=== PATIENT | female | born 1975 | race Caucasian/White ===

== ENCOUNTER 2017-09-24 21:54 | Emergency (ER) | payer MEDICAID ==
[~2017-09-24] VITALS: Ht 160 cm; Wt 91.0 kg
[~2017-09-24 21:54] MED LIST: ALBU8.5H8 INH; LISI-170 PO; LORA0.5T PO; METH4TAB2 PO; MORP30TA81 PO; OXYC10TA47 PO; OXYC10TA6 PO
[2017-09-24] MEDS ORDERED: ALBU18HF INH (22:41)
[2017-09-24] MEDS ORDERED: FLUT1AER INH (22:41)
[2017-09-24] MEDS ORDERED: CARI250T PO (22:41)
[2017-09-24 22:42] LABS: AMPHETAMINE SCREEN, URINE Negative (Negative); BARBITURATE SCREEN, URINE Negative (Negative); BENZODIAZEPINE SCREEN, URINE Positive (Negative); CANNABINOID SCREEN, URINE Negative (Negative); COCAINE SCREEN, URINE Positive (Negative); METHADONE SCREEN, URINE Negative (Negative); OPIATE SCREEN, URINE Negative (Negative)
[2017-09-24 22:50] LABS: BASOPHILS # (AUTO) 0.02 x10^3/uL (0-0.1); BASOPHILS % (AUTO) 0 % (0-1); EOSINOPHILS # (AUTO) 0.02 x10^3/uL (0-0.4); EOSINOPHILS % (AUTO) 0 % (1-7); LYMPHOCYTES # (AUTO) 2.23 x10^3/uL (1-3.4); LYMPHOCYTES % (AUTO) 39 % (22-44); MD NO; MEAN CORPUSCULAR HGB CONC 33.8 g/dL (32.4-35.8); MEAN CORPUSCULAR VOLUME 94.5 fL (80-100); MONOCYTES # (AUTO) 0.39 x10^3/uL (0.2-0.8); MONOCYTES % (AUTO) 7 % (2-9); NEUTROPHILS % (AUTO) 54 % (42-75); PLATELET COUNT 376 x10^3/uL (130-400); RED BLOOD COUNT 4.68 x10^6/uL (3.82-5.3); RED CELL DISTRIBUTION WIDTH 15.5 % (9.6-15.2)
[2017-09-24 23:02] LABS: ALANINE AMINOTRANSFERASE 37 U/L (12-78); ANION GAP 14 mmol/L (5-15); CALCIUM 8.3 mg/dL (8.5-10.1); CHLORIDE 111 mmol/L (98-107); CREATININE 0.96 mg/dL (0.55-1.02); SALICYLATE LEVEL 4.3 mg/dL (2.8-20.0)
[2017-09-24 23:26] LABS: BILIRUBIN,TOTAL 0.9 mg/dL (0.2-1.0)
[2017-09-24 23:27] LABS: ACETAMINOPHEN < 2 mcg/mL (10-30); ALKALINE PHOSPHATASE 110 U/L (45-117); TOTAL PROTEIN 7.7 g/dL (6.4-8.2)
[2017-09-24] MEDS ORDERED: OXYcodone IR 5MG TABLET PO ONE (23:30)
[2017-09-24] MEDS ORDERED: OXYcodone IR 5MG TABLET ONE (23:36)
[2017-09-25] MEDS ORDERED: NICOTINE 14MG/24 HR PATCH.TD24 ONE (00:22)
[2017-09-25] MEDS ORDERED: NICOTINE 14MG/24 HR PATCH.TD24 TD ONE (00:30)
[2017-09-25 06:49] VITALS: BP 168/100
== END 2017-09-25 06:52 | disposition home or self-care (01) ==
LOC: ED 23:12
DX: F32.9 Major depressive disorder, single episode, unspecified (principal); R45.851 Suicidal ideations; F41.9 Anxiety disorder, unspecified; Z90.49 Acquired absence of other specified parts of digestive tract; Z79.899 Other long term (current) drug therapy
CPT/HCPCS: 36415; 80053; 80307; 80329; 85025; 99284; G0480

== ENCOUNTER 2017-12-22 18:53 | Emergency (ER) | payer MEDICAID ==
[~2017-12-22] VITALS: Ht 157.5 cm; Wt 92.5 kg
[~2017-12-22 18:53] MED LIST changes: +ALBU18HF INH; +CARI250T PO; +FLUT1AER INH
[2017-12-22] MEDS ORDERED: CITA40TA12 PO (19:40)
[2017-12-22] MEDS ORDERED: HYDROcodone/APAP 5/325 TABLET PO ONE (20:00)
[2017-12-22] MEDS ORDERED: HYDROcodone/APAP 5/325 TABLET ONE (20:05)
[2017-12-22 20:08] VITALS: BP 173/126
== END 2017-12-22 20:48 | disposition home or self-care (01) ==
LOC: ED 20:18
DX: F10.10 Alcohol abuse, uncomplicated (principal); F11.23 Opioid dependence with withdrawal; G89.29 Other chronic pain; J45.909 Unspecified asthma, uncomplicated; I10 Essential (primary) hypertension; E66.9 Obesity, unspecified; Z98.51 Tubal ligation status
CPT/HCPCS: 99282

== ENCOUNTER 2018-05-03 18:07 | Emergency (ER) | payer MEDICAID ==
[~2018-05-03] VITALS: Ht 157.5 cm; Wt 79.0 kg
[~2018-05-03 18:07] MED LIST changes: +CITA40TA12 PO
[2018-05-03 18:19] VITALS: BP 143/96
[2018-05-03] MEDS ORDERED: NAPROXEN 500 MG TABLET ONE (18:40)
[2018-05-03] MEDS ORDERED: NAPROXEN 500 MG TABLET PO ONE (19:00)
== END 2018-05-03 19:22 | disposition home or self-care (01) ==
LOC: ED 19:20
DX: G89.11 Acute pain due to trauma (principal); M79.661 Pain in right lower leg; M76.62 Achilles tendinitis, left leg; I10 Essential (primary) hypertension; J45.909 Unspecified asthma, uncomplicated; E66.9 Obesity, unspecified; Y04.8XXA Assault by other bodily force, initial encounter; Y93.89 Activity, other specified; Y92.89 Other specified places as the place of occurrence of the external cause; Y99.8 Other external cause status
CPT/HCPCS: 99283

== ENCOUNTER 2020-02-29 20:59 | Inpatient (IN) | payer MEDICAID ==
[~2020-02-29] VITALS: Ht 162.6 cm; Wt 88.1 kg
--- NOTE | 2020-02-29 21:24 | NUR ---
MT: FATHER OF PT ([place]) WOULD LIKE TO BE UPDATED REGARDING PATIENT'S CONDITION - [phone].
[2020-02-29] MEDS ORDERED: EPINEPHRINE SYRINGE 0.1 MG/ML, 10ML ONE (21:45)
[2020-02-29] MEDS ORDERED: NOREPINEPHRINE 8 MG in SODIUM CHLORIDE 0.9% 242 ML IV PRN (22:00)
[2020-02-29] MEDS ORDERED: EPINEPHRINE 10 MG in SODIUM CHLORIDE 0.9% 240 ML IV PRN (22:00)
[2020-02-29 22:03] LABS: BASOPHILS % (AUTO) 0 % (0-1); EOSINOPHILS % (AUTO) 3 % (1-7); LYMPHOCYTES % (AUTO) 39 % (22-44); MEAN CORPUSCULAR HEMOGLOBIN 30.5 pg (27.0-34.8); MEAN CORPUSCULAR HGB CONC 30.9 g/dL (32.4-35.8); MEAN PLATELET VOLUME 8.6 fL (7.4-10.4); MONOCYTES % (AUTO) 8 % (2-9); NEUTROPHILS % (AUTO) 50 % (42-75); PLATELET COUNT 222 x10^3/uL (130-400); RED BLOOD COUNT 4.87 x10^6/uL (3.82-5.3); RED CELL DISTRIBUTION WIDTH 15.1 % (9.6-15.2)
[2020-02-29 22:13] LABS: ALANINE AMINOTRANSFERASE 30 U/L (12-78); ALBUMIN 3.3 g/dL (3.4-5.0); ANION GAP 15 mmol/L (5-15); CALCIUM 8.7 mg/dL (8.5-10.1); CHLORIDE 102 mmol/L (98-107); CREATININE 1.26 mg/dL (0.55-1.02)
[2020-02-29 22:17] LABS: ALKALINE PHOSPHATASE 121 U/L (45-117); BILIRUBIN,TOTAL 0.2 mg/dL (0.2-1.0); TOTAL PROTEIN 7.2 g/dL (6.4-8.2); TROPONIN I < 0.015 ng/mL (0.000-0.045)
[2020-02-29 22:23] LABS: MD SCAN
[2020-02-29] MEDS ORDERED: MIDAZOLAM HCL 50 MG in SODIUM CHLORIDE 0.9% 40 ML IV PRN (22:30)
--- NOTE | 2020-02-29 22:40 | NUR ---
PT FAMILY STATED PT HAS BEEN ON METHADONE AND LATELY OXYCODONE FOR PAIN, SAID PT TOOK 1 XANAX WELL PRIOR TO EVENT
[2020-02-29 22:43] LABS: SALICYLATE LEVEL 5.1 mg/dL (2.8-20.0)
--- NOTE | 2020-02-29 22:44 | NUR ---
PT RESTING IN BED ON VENT WITHOUT SEDATION, PT MEDICATED PER EMAR. PROVIDER IN ROOM PLACING CENTRAL LINE
--- NOTE | 2020-02-29 23:19 | NUR ---
PER PROVIDER VERBAL ORDER, PROVIDER WOULD LIKE TO BACK OFF EPI AND ONLY USE LEVOPHED.
[2020-02-29 23:20] LABS: AMPHETAMINE SCREEN, URINE Negative (Negative); BARBITURATE SCREEN, URINE Negative (Negative); BENZODIAZEPINE SCREEN, URINE Negative (Negative); CANNABINOID SCREEN, URINE Negative (Negative); COCAINE SCREEN, URINE Negative (Negative); METHADONE SCREEN, URINE Positive (Negative); OPIATE SCREEN, URINE Positive (Negative)
[2020-02-29 23:31] LABS: MICROSCOPIC INDICATED
--- NOTE | 2020-02-29 23:40 | NUR ---
HYUN RN: PT TO CT WITH THIS RN, RT AND TECH. PT BACK TO ROOM, SEE VS, HOOKED UP ON ALL MONITORS AND VENT.
[2020-02-29] MEDS ORDERED: DEXAMETHASONE 4 MG/ML, 1ML ONE (23:57)
[2020-03-01] MEDS ORDERED: DEXAMETHASONE 4 MG/ML, 1ML IVPush ONE
--- NOTE | 2020-03-01 00:01 | NUR ---
VERBAL ORDER FROM DR TAPIA FOR 10MG DECADRON IV - GIVEN WITH 5 RIGHTS VERIFIED.
--- NOTE | 2020-03-01 00:20 | NUR ---
artic sun started, pt placed on ua cath temp to artic sun
--- NOTE | 2020-03-01 00:46 | NUR ---
PT FATHER AND WALKED BACK TO [facility] FOR PT CONTACT, ANDREA ROTH FAMILY IS IN ROOM
[2020-03-01] MEDS ORDERED: LEVETIRACETAM 1,000 MG in SODIUM CHLORIDE 0.9% 100 ML IV ONE (01:00)
--- NOTE | 2020-03-01 01:30 | NUR ---
REPORT TO HANSEL Mohan
--- NOTE | 2020-03-01 01:32 | NUR ---
ASSUMING CARE OF PT AT THIS TIME FROM HANSEL VÁZQUEZ. REPORT RECEIVED. ALL QUESTIONS ANSWERED. FAMILY AT BS AT THIS TIME WITH DR. BARBOZA.
--- NOTE | 2020-03-01 01:44 | NUR ---
DR. PEDRAZA AT TO DISCUSS PT DISPOSITION WITH FAMILY. FAMILY LEAVING FOR THE NIGHT AND WILL CALL FOR PT ROOM ASSIGNMENT IN CCU. PT EXIBITS NO PURPOSEFUL MOVEMENT OR PUPILLARY RESPONSE IN ABSENCE OF SEDATION. HYPOTHERMIC PROTOCOL IN EFFECT PER HOSPITAL POLICY. PT MEDICATED WITH IV LEVETIRACETAM AT THIS TIME. PT VSS AND UPDATED IN EMR.
[2020-03-01] MEDS ORDERED: MORPHINE SULFATE 4 MG/ML, 1ML IV PRN (02:00)
[2020-03-01] MEDS ORDERED: MIDAZOLAM HCL 50 MG in SODIUM CHLORIDE 0.9% 40 ML IV PRN (02:00)
[2020-03-01] MEDS ORDERED: EPINEPHRINE 10 MG in SODIUM CHLORIDE 0.9% 240 ML IV PRN (02:00)
[2020-03-01] MEDS ORDERED: PHARMACY MAY ADJ FOR RENAL FX MC PRN (02:00)
[2020-03-01] MEDS ORDERED: ONDANSETRON 2MG/ML, 2ML IVPB PRN (02:00)
[2020-03-01] MEDS ORDERED: SODIUM CHLORIDE 0.9%, 500ML IVBOLUS PRN ×2 (02:00)
--- NOTE | 2020-03-01 03:00 | NUR ---
REPORT OF PT TO HANSEL MURCIA. RT PAGED FOR TRANSPORT OF PT TO CCU AT THIS TIME.
[2020-03-01] MEDS: CEFTRIAXONE PMX 1GM/50ML 50 ML IV SCH (03:24)
--- NOTE | 2020-03-01 03:34 | NUR ---
PT CLOTHES WERE THROWN IN THE GARBAGE DUE TO BEING HEAVILY SOILED WITH BODILY FLUIDS/WASTE. FAMILY NOTIFIED OF NEED TO DISCARD CLOTHES. PT MOVED WITH RT TO CCU AND CARE WAS ASSUMED BY HANSEL MURCIA.
[2020-03-01 04:00] VITALS: BP 139/109
[2020-03-01 04:03] LABS: BASOPHILS % (AUTO) 0 % (0-1); EOSINOPHILS % (AUTO) 1 % (1-7); LYMPHOCYTES % (AUTO) 6 % (22-44); MEAN CORPUSCULAR HEMOGLOBIN 30.8 pg (27.0-34.8); MEAN CORPUSCULAR HGB CONC 32.8 g/dL (32.4-35.8); MEAN PLATELET VOLUME 7.8 fL (7.4-10.4); MONOCYTES % (AUTO) 6 % (2-9); NEUTROPHILS % (AUTO) 87 % (42-75); PLATELET COUNT 224 x10^3/uL (130-400); RED BLOOD COUNT 6.08 x10^6/uL (3.82-5.3); RED CELL DISTRIBUTION WIDTH 14.4 % (9.6-15.2)
[2020-03-01 04:16] LABS: MD NO
[2020-03-01 04:20] LABS: ALANINE AMINOTRANSFERASE 151 U/L (12-78); ALBUMIN 3.6 g/dL (3.4-5.0); ANION GAP 7 mmol/L (5-15); CALCIUM 7.7 mg/dL (8.5-10.1); CHLORIDE 113 mmol/L (98-107); CREATININE 1.13 mg/dL (0.55-1.02)
[2020-03-01 04:22] LABS: ALKALINE PHOSPHATASE 149 U/L (45-117); BILIRUBIN,TOTAL 0.5 mg/dL (0.2-1.0); TOTAL PROTEIN 7.6 g/dL (6.4-8.2)
[2020-03-01] MEDS ORDERED: REGULAR INSULIN 100 UNITS in SODIUM CHLORIDE 0.9% 99 ML IV PRN ×2 (05:00→05:30)
[2020-03-01] MEDS ORDERED: INSULIN INFUSION FOR ICU PROTOCOL XX PRN (05:30)
[2020-03-01] MEDS ORDERED: DEXTROSE 50%, 50ML SYRINGE IV PRN (05:30)
[2020-03-01] MEDS ORDERED: INSULIN REGULAR 100 UNITS/ML, 3ML VIAL IV ONE (05:30)
[2020-03-01 05:35] VITALS: BP 126/98
[2020-03-01] MEDS ORDERED: DEXTROSE 50%, 50ML SYRINGE IVPush PRN (07:30)
[2020-03-01] MEDS ORDERED: SENNA/DOCUSATE TABLET NG PRN (07:30)
[2020-03-01] MEDS ORDERED: DEXTROSE 4 GM TAB.CHEW PO PRN (07:30)
[2020-03-01] MEDS ORDERED: GLUCAGON 1 MG IM PRN (07:30)
[2020-03-01] MEDS ORDERED: PHARMACY MAY ADJ FOR RENAL FX MC SCH (07:30)
[2020-03-01] MEDS ORDERED: PROPOFOL 100 ML IV ONE (07:54)
[2020-03-01] MEDS ORDERED: CALCIUM CHLORIDE 13.6 MEQ in SODIUM CHLORIDE 0.9% 100 ML IVPB PRN (08:00)
[2020-03-01] MEDS ORDERED: ARTIFICIAL TEARS OINT 3.5 GM EACHEYE SCH (08:00)
[2020-03-01] MEDS ORDERED: FENTANYL PF 1,000 MCG in SODIUM CHLORIDE 0.9% 80 ML IV PRN (08:00)
[2020-03-01] MEDS ORDERED: SODIUM PHOSPHATE 20 MMOL in SODIUM CHLORIDE 0.9% 250 ML IVPB PRN (08:00)
[2020-03-01] MEDS ORDERED: MAGNESIUM SULFATE 1 GM in DEXTROSE 5% 100 ML IVPB PRN (08:00)
[2020-03-01] MEDS: PROPOFOL 100 ML IV PRN (08:08)
[2020-03-01] MEDS: KSCALE TO 4.0 IV SCH ×4 (08:37→20:00)
[2020-03-01] MEDS: BUSPIRONE 10 MG TABLET NG SCH ×2 (09:11→17:13)
[2020-03-01] MEDS: SODIUM CHLORIDE FLUSH 10ML SYR IVF SCH ×2 (09:11→19:36)
[2020-03-01] MEDS ORDERED: POTASSIUM CHLORIDE PMX 100 ML IV ONE ×2 (10:00→21:00)
[2020-03-01] MEDS: PANTOPRAZOLE 40 MG IV IVPush SCH (10:49)
[2020-03-01] MEDS: HEPARIN 5,000 UNITS/ML, 1ML SQ SCH ×2 (10:49→18:21)
[2020-03-01] MEDS: LEVETIRACETAM 500 MG in SODIUM CHLORIDE 0.9% 100 ML IV SCH (12:30)
[2020-03-01 13:58] LABS: D-DIMER 34.35 ug/mlFEU (0.00-0.52); INTERNATIONAL NORMALIZED RATIO 1.55 (0.93-1.1); PROTHROMBIN TIME 16.4 Seconds (9.6-11.5)
[2020-03-01] MEDS ORDERED: SODIUM BICARB 8.4%, 50ML SYRINGE IVPush ONE ×2 (14:00→19:30)
[2020-03-01] MEDS: AMPICILLIN/SULBACTAM 3 GM in SODIUM CHLORIDE 0.9% 100 ML IV SCH ×2 (14:07→19:36)
[2020-03-01] MEDS ORDERED: SODIUM CHLORIDE 0.9% 1,000ML IVBOLUS ONE (17:00)
[2020-03-01] MEDS: ARTIFICIAL TEARS OINT 3.5 GM EACHEYE SCH ×2 (18:21→23:38)
[2020-03-01] MEDS ORDERED: SODIUM BICARB 8.4%, 50ML SYRINGE ONE (19:28)
[2020-03-01] MEDS: NOREPINEPHRINE 8 MG in SODIUM CHLORIDE 0.9% 242 ML IV PRN (23:38)
[2020-03-02] MEDS: BUSPIRONE 10 MG TABLET NG SCH ×3 (00:35→16:58)
[2020-03-02] MEDS: KSCALE TO 4.0 IV SCH ×7 (00:35→22:07)
[2020-03-02] MEDS: AMPICILLIN/SULBACTAM 3 GM in SODIUM CHLORIDE 0.9% 100 ML IV SCH ×4 (01:07→19:42)
[2020-03-02] MEDS: LEVETIRACETAM 500 MG in SODIUM CHLORIDE 0.9% 100 ML IV SCH ×2 (01:41→13:02)
[2020-03-02] MEDS: HEPARIN 5,000 UNITS/ML, 1ML SQ SCH ×3 (02:26→18:00)
[2020-03-02] MEDS: CEFTRIAXONE PMX 1GM/50ML 50 ML IV SCH (03:18)
[2020-03-02 03:55] VITALS: BP 122/92
[2020-03-02 04:42] LABS: BASOPHILS % (AUTO) 0 % (0-1); EOSINOPHILS % (AUTO) 0 % (1-7); LYMPHOCYTES % (AUTO) 6 % (22-44); MEAN CORPUSCULAR HEMOGLOBIN 30.7 pg (27.0-34.8); MEAN PLATELET VOLUME 8.6 fL (7.4-10.4); MONOCYTES % (AUTO) 7 % (2-9); NEUTROPHILS % (AUTO) 87 % (42-75); PLATELET COUNT 253 x10^3/uL (130-400); RED BLOOD COUNT 6.67 x10^6/uL (3.82-5.3); RED CELL DISTRIBUTION WIDTH 15.3 % (9.6-15.2)
[2020-03-02 04:53] LABS: MD NO
[2020-03-02 05:34] LABS: ANION GAP 11 mmol/L (5-15); CALCIUM 7.5 mg/dL (8.5-10.1); CHLORIDE 122 mmol/L (98-107)
[2020-03-02 05:35] LABS: CREATININE 1.69 mg/dL (0.55-1.02)
[2020-03-02 07:12] LABS: ANION GAP 9 mmol/L (5-15); CALCIUM 7.9 mg/dL (8.5-10.1); CHLORIDE 124 mmol/L (98-107); CREATININE 1.75 mg/dL (0.55-1.02)
[2020-03-02] MEDS: ARTIFICIAL TEARS OINT 3.5 GM EACHEYE SCH ×2 (08:33→16:58)
[2020-03-02] MEDS: PANTOPRAZOLE 40 MG IV IVPush SCH (08:41)
[2020-03-02] MEDS: SODIUM CHLORIDE FLUSH 10ML SYR IVF SCH ×2 (08:41→19:42)
[2020-03-02] MEDS ORDERED: LACTATED RINGERS 1,000 ML IVBOLUS ONE ×2 (10:30→17:30)
[2020-03-02] MEDS ORDERED: POTASSIUM CHLORIDE PMX 100 ML IV ONE (11:30)
[2020-03-02] MEDS: NOREPINEPHRINE 8 MG in SODIUM CHLORIDE 0.9% 242 ML IV PRN (17:36)
[2020-03-02] MEDS: PROPOFOL 100 ML IV PRN (17:44)
[2020-03-03] MEDS: ARTIFICIAL TEARS OINT 3.5 GM EACHEYE SCH ×2 (00:46→08:51)
[2020-03-03] MEDS: BUSPIRONE 10 MG TABLET NG SCH (00:46)
[2020-03-03] MEDS: LEVETIRACETAM 500 MG in SODIUM CHLORIDE 0.9% 100 ML IV SCH (01:18)
[2020-03-03] MEDS: NOREPINEPHRINE 8 MG in SODIUM CHLORIDE 0.9% 242 ML IV PRN ×2 (01:41→11:21)
[2020-03-03] MEDS: AMPICILLIN/SULBACTAM 3 GM in SODIUM CHLORIDE 0.9% 100 ML IV SCH ×2 (01:42→08:51)
[2020-03-03] MEDS: HEPARIN 5,000 UNITS/ML, 1ML SQ SCH ×2 (02:33→10:58)
[2020-03-03] MEDS: CEFTRIAXONE PMX 1GM/50ML 50 ML IV SCH (03:36)
[2020-03-03 04:33] VITALS: BP 92/50
[2020-03-03 04:43] LABS: ANION GAP 7 mmol/L (5-15); CALCIUM 7.2 mg/dL (8.5-10.1); CHLORIDE 129 mmol/L (98-107)
[2020-03-03 04:44] LABS: CREATININE 1.87 mg/dL (0.55-1.02)
[2020-03-03 05:15] LABS: BASOPHILS % (AUTO) 0 % (0-1); EOSINOPHILS % (AUTO) 0 % (1-7); LYMPHOCYTES % (AUTO) 13 % (22-44); MEAN CORPUSCULAR HEMOGLOBIN 30.4 pg (27.0-34.8); MEAN PLATELET VOLUME 8.8 fL (7.4-10.4); MONOCYTES % (AUTO) 10 % (2-9); NEUTROPHILS % (AUTO) 77 % (42-75); PLATELET COUNT 231 x10^3/uL (130-400); RED BLOOD COUNT 5.76 x10^6/uL (3.82-5.3); RED CELL DISTRIBUTION WIDTH 15.5 % (9.6-15.2)
[2020-03-03 05:22] LABS: MD NO
[2020-03-03] MEDS: SODIUM CHLORIDE 0.45% 1,000 ML IV SCH ×2 (06:37→11:26)
[2020-03-03] MEDS: SODIUM CHLORIDE FLUSH 10ML SYR IVF SCH (08:51)
[2020-03-03] MEDS: PANTOPRAZOLE 40 MG IV IVPush SCH (08:51)
== END 2020-03-03 11:39 | disposition short-term general hospital (02) | DRG 91 ==
LOC: ED 22:22 → EDIP 03-01 02:53 → CCU 03-01 03:13
PROVIDERS: ADMIT Internal Medicine; ATTEND Internal Medicine
PROC: 5A1945Z Respiratory Ventilation, 24-96 Consecutive Hours (ICD-10-PCS; 2020-02-29)
PROC: 0BH17EZ Insertion of Endotracheal Airway into Trachea, Via Natural or Artificial Opening (ICD-10-PCS; 2020-02-29)
PROC: 0T9B70Z Drainage of Bladder with Drainage Device, Via Natural or Artificial Opening (ICD-10-PCS; 2020-02-29)
PROC: 02HV33Z Insertion of Infusion Device into Superior Vena Cava, Percutaneous Approach (ICD-10-PCS; principal; 2020-03-01)
PROC: 5A12012 Performance of Cardiac Output, Single, Manual (ICD-10-PCS; 2020-03-01)
PROC: B543ZZA Ultrasonography of Right Jugular Veins, Guidance (ICD-10-PCS; 2020-03-01)
PROC: 03H633Z Insertion of Infusion Device into Left Axillary Artery, Percutaneous Approach (ICD-10-PCS; 2020-03-03)
DX: G93.1 Anoxic brain damage, not elsewhere classified (principal); G93.41 Metabolic encephalopathy; J96.01 Acute respiratory failure with hypoxia; I46.9 Cardiac arrest, cause unspecified; N17.0 Acute kidney failure with tubular necrosis; J18.9 Pneumonia, unspecified organism; E87.0 Hyperosmolality and hypernatremia; E87.2 Acidosis; N39.0 Urinary tract infection, site not specified; R57.9 Shock, unspecified; S36.119A Unspecified injury of liver, initial encounter; G40.909 Epilepsy, unspecified, not intractable, without status epilepticus; I10 Essential (primary) hypertension; J44.9 Chronic obstructive pulmonary disease, unspecified; R00.0 Tachycardia, unspecified; R40.2430 Glasgow coma scale score 3-8, unspecified time; R73.9 Hyperglycemia, unspecified; R74.8 Abnormal levels of other serum enzymes; R94.31 Abnormal electrocardiogram [ECG] [EKG]; Z82.3 Family history of stroke; Z82.49 Family history of ischemic heart disease and other diseases of the circulatory system; Z86.73 Personal history of transient ischemic attack (TIA), and cerebral infarction without residual deficits
CPT/HCPCS: 36415; 36600; 70450; 71045; 80048; 80053; 80307; 81001; 82330; 82803; 82962; 83605; 83735; 84100; 84132; 84478; 84484; 84703; 85025; 85379; 85610; 85730; 86850; 86900; 87081; 87086; 93005; 94002; 94003; 96374; 96375; 99291; G0378; J0171; J0295; J0696; J1100; J1644; J1815; J1953; J2704; J3480; C9113; J7030; J7040; J7050; J7120

== ENCOUNTER 2020-03-03 11:39 | Inpatient (IN) | payer OTHER ==
[~2020-03-03] VITALS: Ht 167.6 cm; Wt 96.0 kg
[2020-03-03] MEDS ORDERED: DEXTROSE 50%, 50ML SYRINGE IVPush PRN (15:30)
[2020-03-03] MEDS ORDERED: POTASSIUM CHLORIDE 60 MEQ in SODIUM CHLORIDE 0.9% 100 ML IV PRN (15:30)
[2020-03-03] MEDS ORDERED: FLUCONAZOLE 200 MG/100 ML 100 ML IV ONE (15:30)
[2020-03-03] MEDS ORDERED: POTASSIUM PHOSPHATE 30 MMOL in SODIUM CHLORIDE 0.9% 250 ML IV PRN (15:30)
[2020-03-03] MEDS ORDERED: PLEASE ENTER HEIGHT AND WEIGHT MC SCH (15:30)
[2020-03-03] MEDS ORDERED: POTASSIUM PHOSPHATE 21 MMOL in SODIUM CHLORIDE 0.9% 250 ML IV PRN (15:30)
[2020-03-03] MEDS ORDERED: VASOPRESSIN 20 UNIT in SODIUM CHLORIDE 0.9% 99 ML IV PRN (15:30)
[2020-03-03] MEDS ORDERED: MAGNESIUM SULFATE PMX 4GM/100M 100 ML IVPB PRN (15:30)
[2020-03-03] MEDS ORDERED: PIPERACILLIN/TAZO 3.375 GM in SODIUM CHLORIDE 0.9% 50 ML IVPB SCH (15:30)
[2020-03-03] MEDS: ARTIFICIAL TEARS 15 DROP/ML BOTTLE EACHEYE SCH ×5 (15:30→23:30)
[2020-03-03] MEDS ORDERED: POTASSIUM CHLORIDE 40 MEQ in SODIUM CHLORIDE 0.9% 100 ML IV PRN (15:30)
[2020-03-03] MEDS ORDERED: NOREPINEPHRINE 8 MG in SODIUM CHLORIDE 0.9% 242 ML IV PRN (15:30)
[2020-03-03] MEDS ORDERED: CALCIUM CHLORIDE 13.6 MEQ in SODIUM CHLORIDE 0.9% 50 ML IV PRN (15:30)
[2020-03-03] MEDS ORDERED: LEVOTHYROXINE 100 MCG INJ IV ONE (16:00)
[2020-03-03 16:08] LABS: MEAN CORPUSCULAR HEMOGLOBIN 30.4 pg (27.0-34.8); MEAN CORPUSCULAR HGB CONC 32.3 g/dL (32.4-35.8); MEAN PLATELET VOLUME 8.3 fL (7.4-10.4); PLATELET COUNT 211 x10^3/uL (130-400); RED BLOOD COUNT 5.46 x10^6/uL (3.82-5.3); RED CELL DISTRIBUTION WIDTH 15.5 % (9.6-15.2)
[2020-03-03] MEDS: DEXTROSE 5% IV SCH (16:12)
[2020-03-03] MEDS: METHYLPREDNISOLONE SOD SUCC IV SCH (16:12)
[2020-03-03 16:16] LABS: INTERNATIONAL NORMALIZED RATIO 1.28 (0.93-1.1); PROTHROMBIN TIME 13.5 Seconds (9.6-11.5)
[2020-03-03 16:20] LABS: ALANINE AMINOTRANSFERASE 114 U/L (12-78); ALBUMIN 1.9 g/dL (3.4-5.0); ANION GAP 4 mmol/L (5-15); BILIRUBIN, DIRECT 0.1 mg/dL (0.1-0.2); CALCIUM 7.3 mg/dL (8.5-10.1); CHLORIDE 136 mmol/L (98-107); CREATININE 1.59 mg/dL (0.55-1.02)
[2020-03-03] MEDS: DEXTROSE 5% 1,000 ML IV SCH (16:22)
[2020-03-03 16:23] LABS: ALKALINE PHOSPHATASE 178 U/L (45-117); BILIRUBIN,TOTAL 0.3 mg/dL (0.2-1.0); TOTAL PROTEIN 5.4 g/dL (6.4-8.2)
[2020-03-03] MEDS: PANTOPRAZOLE 40 MG IV IV SCH (16:28)
[2020-03-03 16:38] LABS: CREATINE KINASE, TOTAL 1230 U/L (26-192)
[2020-03-03] MEDS: LEVOTHYROXINE 200 MCG in SODIUM CHLORIDE 0.9% 500 ML IV SCH (16:38)
[2020-03-03 16:39] LABS: MICROSCOPIC INDICATED
[2020-03-03] MEDS ORDERED: ALBUTEROL SULFATE 2.5 MG/3 ML ONE (16:50)
[2020-03-03] MEDS ORDERED: ALBUTEROL SULFATE 2.5MG/0.5ML ONE (16:51)
[2020-03-03 17:03] LABS: BILIRUBIN,INDIRECT 0.2 mg/dL (0.0-2.0)
[2020-03-03 17:25] LABS: MD YES
[2020-03-03 17:27] LABS: BANDS%(MANUAL) 10 % (0-7); EOS#(MANUAL) 0.09 x10^3/uL (0.0-0.4); EOS% (MANUAL) 1 % (1-7); LYMPH#(MANUAL) 1.71 x10^3/uL (1-3.4); LYMPHS% (MANUAL) 19 % (22-44); MONOS#(MANUAL) 0.54 x10^3/uL (0.3-2.7); MONOS% (MANUAL) 6 % (2-9); SEG#(MANUAL) 5.76 x10^3/uL (1.8-6.8); SEGS% (MANUAL) 64 % (42-75)
[2020-03-03 17:28] LABS: <PLATELET ESTIMATE> ADEQUATE; <PLT MORPHOLOGY> NORMAL PLT MORPH; <RBC MORPHOLOGY> NORMAL
[2020-03-03] MEDS ORDERED: ALBUTEROL SULFATE 2.5 MG/3 ML INLINE SCH (19:00)
[2020-03-03] MEDS: ALBUTEROL SULFATE 2.5MG/0.5ML NEB SCH ×2 (19:00→22:14)
[2020-03-03] MEDS: PHENYLEPHRINE 50 MG in SODIUM CHLORIDE 0.9% 245 ML IV PRN (19:54)
[2020-03-03] MEDS ORDERED: OMNIPAQUE 350 MG/ML, 100ML BOTTLE ONE (21:38)
[2020-03-03 22:08] LABS: MEAN CORPUSCULAR HEMOGLOBIN 30.2 pg (27.0-34.8); MEAN CORPUSCULAR HGB CONC 32.2 g/dL (32.4-35.8); MEAN PLATELET VOLUME 8.6 fL (7.4-10.4); PLATELET COUNT 140 x10^3/uL (130-400); RED BLOOD COUNT 4.58 x10^6/uL (3.82-5.3); RED CELL DISTRIBUTION WIDTH 15.5 % (9.6-15.2)
[2020-03-03 22:12] LABS: INTERNATIONAL NORMALIZED RATIO 1.32 (0.93-1.1)
[2020-03-03 22:14] LABS: ANION GAP 2 mmol/L (5-15); BILIRUBIN, DIRECT 0.1 mg/dL (0.1-0.2); CALCIUM 6.8 mg/dL (8.5-10.1); CHLORIDE 132 mmol/L (98-107)
[2020-03-03 22:16] LABS: ALANINE AMINOTRANSFERASE 89 U/L (12-78); ALKALINE PHOSPHATASE 139 U/L (45-117); BILIRUBIN,TOTAL 0.2 mg/dL (0.2-1.0); CREATINE KINASE, TOTAL 795 U/L (26-192); CREATININE 1.55 mg/dL (0.55-1.02); TOTAL PROTEIN 4.3 g/dL (6.4-8.2)
[2020-03-03 22:24] LABS: MD YES
[2020-03-03 22:29] LABS: BILIRUBIN,INDIRECT 0.1 mg/dL (0.0-2.0)
[2020-03-03 22:30] LABS: BAND#(MANUAL) 0.35 x10^3/uL; BANDS%(MANUAL) 10 % (0-7); LYMPH#(MANUAL) 0.18 x10^3/uL (1-3.4); LYMPHS% (MANUAL) 5 % (22-44); MONOS#(MANUAL) 0.07 x10^3/uL (0.3-2.7); MONOS% (MANUAL) 2 % (2-9); SEG#(MANUAL) 2.91 x10^3/uL (1.8-6.8); SEGS% (MANUAL) 83 % (42-75)
[2020-03-03 22:31] LABS: OVALOCYTES 1+
[2020-03-03 22:32] LABS: <PLATELET ESTIMATE> ADEQUATE; <PLT MORPHOLOGY> NORMAL PLT MORPH
[2020-03-03] MEDS: REGULAR INSULIN 100 UNITS in SODIUM CHLORIDE 0.9% 99 ML IV SCH (22:51)
[2020-03-04] MEDS: SODIUM BICARBONATE 8.4% 150 MEQ in DEXTROSE 5% 1,000 ML IV SCH ×4 (00:33→20:23)
[2020-03-04] MEDS: ARTIFICIAL TEARS 15 DROP/ML BOTTLE EACHEYE SCH ×12 (01:30→23:57)
[2020-03-04] MEDS: PIPERACILLIN/TAZO/PMX 3.375GM 50 ML IV SCH ×3 (02:12→18:04)
[2020-03-04] MEDS: DEXTROSE 5% 1,000 ML IV SCH ×4 (02:12→22:21)
[2020-03-04] MEDS: ALBUTEROL SULFATE 2.5MG/0.5ML NEB SCH ×6 (02:24→22:14)
[2020-03-04 04:00] VITALS: BP 97/60
[2020-03-04 04:16] LABS: MEAN CORPUSCULAR HEMOGLOBIN 30.1 pg (27.0-34.8); MEAN CORPUSCULAR HGB CONC 32.3 g/dL (32.4-35.8); MEAN PLATELET VOLUME 8.4 fL (7.4-10.4); PLATELET COUNT 169 x10^3/uL (130-400); RED BLOOD COUNT 4.62 x10^6/uL (3.82-5.3); RED CELL DISTRIBUTION WIDTH 15.9 % (9.6-15.2)
[2020-03-04 04:24] LABS: ALANINE AMINOTRANSFERASE 85 U/L (12-78); ANION GAP 4 mmol/L (5-15); CALCIUM 6.8 mg/dL (8.5-10.1); CHLORIDE 132 mmol/L (98-107)
[2020-03-04 04:27] LABS: ALKALINE PHOSPHATASE 137 U/L (45-117); BILIRUBIN,TOTAL 0.2 mg/dL (0.2-1.0); CREATINE KINASE, TOTAL 601 U/L (26-192); CREATININE 1.41 mg/dL (0.55-1.02); TOTAL PROTEIN 4.7 g/dL (6.4-8.2)
[2020-03-04 04:33] LABS: INTERNATIONAL NORMALIZED RATIO 1.24 (0.93-1.1); PROTHROMBIN TIME 13.1 Seconds (9.6-11.5)
[2020-03-04 04:35] LABS: BILIRUBIN, DIRECT < 0.1 mg/dL (0.1-0.2); BILIRUBIN,INDIRECT 0.1 mg/dL (0.0-2.0)
[2020-03-04 04:50] LABS: MD YES
[2020-03-04 04:56] LABS: BANDS%(MANUAL) 15 % (0-7); LYMPH#(MANUAL) 0.37 x10^3/uL (1-3.4); LYMPHS% (MANUAL) 7 % (22-44); MONOS#(MANUAL) 0.11 x10^3/uL (0.3-2.7); MONOS% (MANUAL) 2 % (2-9); SEG#(MANUAL) 4.03 x10^3/uL (1.8-6.8); SEGS% (MANUAL) 76 % (42-75)
[2020-03-04 04:57] LABS: OVALOCYTES 1+
[2020-03-04 04:58] LABS: <PLATELET ESTIMATE> ADEQUATE; <PLT MORPHOLOGY> NORMAL PLT MORPH; ANISOCYTOSIS 1+
[2020-03-04] MEDS: PHENYLEPHRINE 50 MG in SODIUM CHLORIDE 0.9% 245 ML IV PRN (08:08)
[2020-03-04] MEDS: REGULAR INSULIN 100 UNITS in SODIUM CHLORIDE 0.9% 99 ML IV SCH ×3 (08:08→20:24)
[2020-03-04] MEDS ORDERED: LIDOCAINE 1%, 10ML ONE (08:27)
[2020-03-04 09:02] LABS: MEAN CORPUSCULAR HEMOGLOBIN 30.2 pg (27.0-34.8); MEAN CORPUSCULAR HGB CONC 32.3 g/dL (32.4-35.8); MEAN PLATELET VOLUME 8.3 fL (7.4-10.4); PLATELET COUNT 174 x10^3/uL (130-400); RED BLOOD COUNT 4.56 x10^6/uL (3.82-5.3); RED CELL DISTRIBUTION WIDTH 15.3 % (9.6-15.2)
[2020-03-04 09:07] LABS: INTERNATIONAL NORMALIZED RATIO 1.2 (0.93-1.1); PROTHROMBIN TIME 12.7 Seconds (9.6-11.5)
[2020-03-04 09:09] LABS: ALANINE AMINOTRANSFERASE 84 U/L (12-78); ANION GAP 4 mmol/L (5-15); CALCIUM 7.1 mg/dL (8.5-10.1); CHLORIDE 136 mmol/L (98-107)
[2020-03-04 09:12] LABS: ALKALINE PHOSPHATASE 135 U/L (45-117); BILIRUBIN,TOTAL 0.2 mg/dL (0.2-1.0); CREATINE KINASE, TOTAL 486 U/L (26-192); CREATININE 1.21 mg/dL (0.55-1.02); TOTAL PROTEIN 4.9 g/dL (6.4-8.2); TROPONIN I 0.557 ng/mL (0.000-0.045)
[2020-03-04 09:13] LABS: BILIRUBIN, DIRECT < 0.1 mg/dL (0.1-0.2); BILIRUBIN,INDIRECT 0.1 mg/dL (0.0-2.0)
[2020-03-04 09:34] LABS: MD YES
[2020-03-04 09:36] LABS: BAND#(MANUAL) 0.59 x10^3/uL; BANDS%(MANUAL) 8 % (0-7); LYMPH#(MANUAL) 0.96 x10^3/uL (1-3.4); LYMPHS% (MANUAL) 13 % (22-44); MONOS#(MANUAL) 0.15 x10^3/uL (0.3-2.7); MONOS% (MANUAL) 2 % (2-9); REACTIVE LYMPHS # (MANUAL) 0.07 x10^3/uL (0-0); REACTIVE LYMPHS % (MANUAL) 1 % (0-0); SEG#(MANUAL) 5.62 x10^3/uL (1.8-6.8); SEGS% (MANUAL) 76 % (42-75)
[2020-03-04 09:38] LABS: ANISOCYTOSIS 1+
[2020-03-04 09:39] LABS: <PLATELET ESTIMATE> ADEQUATE; <PLT MORPHOLOGY> NORMAL PLT MORPH; OVALOCYTES 1+
[2020-03-04] MEDS: POTASSIUM PHOSPHATE 15 MMOL in SODIUM CHLORIDE 0.9% 250 ML IV PRN ×2 (10:13→17:35)
[2020-03-04] MEDS: POTASSIUM CHLORIDE PMX 20MEQ/100 ML IVPB PRN ×2 (10:13→22:06)
[2020-03-04 11:03] LABS: MICROSCOPIC INDICATED
[2020-03-04 11:40] LABS: INTERNATIONAL NORMALIZED RATIO 1.21 (0.93-1.1); PROTHROMBIN TIME 12.8 Seconds (9.6-11.5)
[2020-03-04] MEDS: LEVOTHYROXINE 200 MCG in SODIUM CHLORIDE 0.9% 500 ML IV SCH (12:24)
[2020-03-04 13:22] LABS: INTERNATIONAL NORMALIZED RATIO 1.27 (0.93-1.1); PROTHROMBIN TIME 13.4 Seconds (9.6-11.5)
[2020-03-04] MEDS ORDERED: VERAPAMIL 2.5 MG/ML, 2ML ONE (15:13)
[2020-03-04 15:17] LABS: BASOPHILS % (AUTO) 0 % (0-1); EOSINOPHILS % (AUTO) 0 % (1-7); LYMPHOCYTES % (AUTO) 8 % (22-44); MEAN CORPUSCULAR HEMOGLOBIN 30.5 pg (27.0-34.8); MEAN CORPUSCULAR HGB CONC 33.1 g/dL (32.4-35.8); MEAN PLATELET VOLUME 8.4 fL (7.4-10.4); MONOCYTES % (AUTO) 4 % (2-9); NEUTROPHILS % (AUTO) 88 % (42-75); PLATELET COUNT 122 x10^3/uL (130-400); RED BLOOD COUNT 3.98 x10^6/uL (3.82-5.3); RED CELL DISTRIBUTION WIDTH 15.3 % (9.6-15.2)
[2020-03-04 15:22] LABS: MD NO
[2020-03-04 15:26] LABS: ALANINE AMINOTRANSFERASE 72 U/L (12-78); ANION GAP 3 mmol/L (5-15); BILIRUBIN, DIRECT 0.1 mg/dL (0.1-0.2); CALCIUM 6.7 mg/dL (8.5-10.1); CHLORIDE 128 mmol/L (98-107); CREATININE 0.99 mg/dL (0.55-1.02)
[2020-03-04 15:28] LABS: ALKALINE PHOSPHATASE 120 U/L (45-117); BILIRUBIN,INDIRECT 0.2 mg/dL (0.0-2.0); BILIRUBIN,TOTAL 0.3 mg/dL (0.2-1.0); CREATINE KINASE, TOTAL 396 U/L (26-192); INTERNATIONAL NORMALIZED RATIO 1.2 (0.93-1.1); PROTHROMBIN TIME 12.7 Seconds (9.6-11.5); TOTAL PROTEIN 4.5 g/dL (6.4-8.2); TROPONIN I 0.542 ng/mL (0.000-0.045)
[2020-03-04] MEDS: METHYLPREDNISOLONE SOD SUCC IV SCH (17:42)
[2020-03-04] MEDS: DEXTROSE 5% IV SCH (17:42)
[2020-03-04] MEDS: PANTOPRAZOLE 40 MG IV IV SCH (17:46)
[2020-03-04] MEDS: MAGNESIUM SULFATE PMX 2GM/50ML 50 ML IVPB PRN ×2 (17:47→21:47)
[2020-03-04] MEDS ORDERED: FUROSEMIDE 20 MG/2 ML IV ONE ×2 (20:00→21:30)
[2020-03-04 21:33] LABS: BASOPHILS % (AUTO) 0 % (0-1); EOSINOPHILS % (AUTO) 0 % (1-7); LYMPHOCYTES % (AUTO) 8 % (22-44); MEAN CORPUSCULAR HEMOGLOBIN 30.5 pg (27.0-34.8); MEAN CORPUSCULAR HGB CONC 33.1 g/dL (32.4-35.8); MEAN PLATELET VOLUME 8.3 fL (7.4-10.4); MONOCYTES % (AUTO) 5 % (2-9); NEUTROPHILS % (AUTO) 87 % (42-75); PLATELET COUNT 124 x10^3/uL (130-400); RED BLOOD COUNT 3.95 x10^6/uL (3.82-5.3); RED CELL DISTRIBUTION WIDTH 14.9 % (9.6-15.2)
[2020-03-04 21:35] LABS: INTERNATIONAL NORMALIZED RATIO 1.17 (0.93-1.1); MD NO; PROTHROMBIN TIME 12.4 Seconds (9.6-11.5)
[2020-03-04 21:37] LABS: ALANINE AMINOTRANSFERASE 74 U/L (12-78); ANION GAP 4 mmol/L (5-15); BILIRUBIN, DIRECT 0.2 mg/dL (0.1-0.2); CALCIUM 6.2 mg/dL (8.5-10.1); CHLORIDE 122 mmol/L (98-107); CREATININE 0.89 mg/dL (0.55-1.02)
[2020-03-04 21:40] LABS: ALKALINE PHOSPHATASE 119 U/L (45-117); BILIRUBIN,INDIRECT 0.2 mg/dL (0.0-2.0); BILIRUBIN,TOTAL 0.4 mg/dL (0.2-1.0); CREATINE KINASE, TOTAL 432 U/L (26-192); TOTAL PROTEIN 4.5 g/dL (6.4-8.2); TROPONIN I 0.417 ng/mL (0.000-0.045)
[2020-03-04] MEDS ORDERED: VECURONIUM 10 MG IVPush ONE (23:30)
[2020-03-04] MEDS ORDERED: LABETALOL 5MG/ML, 20ML ONE (23:56)
[2020-03-05] MEDS ORDERED: CALCIUM CHLORIDE 13.6 MEQ in SODIUM CHLORIDE 0.9% 100 ML IV ONE (00:30)
[2020-03-05] MEDS: ARTIFICIAL TEARS 15 DROP/ML BOTTLE EACHEYE SCH ×11 (01:03→21:30)
[2020-03-05] MEDS: PIPERACILLIN/TAZO/PMX 3.375GM 50 ML IV SCH ×3 (01:04→17:50)
[2020-03-05] MEDS: SODIUM BICARBONATE 8.4% 150 MEQ in DEXTROSE 5% 1,000 ML IV SCH ×2 (02:20→08:55)
[2020-03-05] MEDS: ALBUTEROL SULFATE 2.5MG/0.5ML NEB SCH ×6 (02:27→22:27)
[2020-03-05 03:18] LABS: FIO2 36.1 %
[2020-03-05 03:23] LABS: BASOPHILS % (AUTO) 0 % (0-1); EOSINOPHILS % (AUTO) 0 % (1-7); LYMPHOCYTES % (AUTO) 7 % (22-44); MEAN CORPUSCULAR HEMOGLOBIN 29.9 pg (27.0-34.8); MEAN CORPUSCULAR HGB CONC 32.7 g/dL (32.4-35.8); MEAN PLATELET VOLUME 8.8 fL (7.4-10.4); MONOCYTES % (AUTO) 6 % (2-9); NEUTROPHILS % (AUTO) 87 % (42-75); PLATELET COUNT 152 x10^3/uL (130-400); RED BLOOD COUNT 4.28 x10^6/uL (3.82-5.3); RED CELL DISTRIBUTION WIDTH 14.9 % (9.6-15.2)
[2020-03-05 03:29] LABS: INTERNATIONAL NORMALIZED RATIO 1.15 (0.93-1.1); PROTHROMBIN TIME 12.2 Seconds (9.6-11.5)
[2020-03-05 03:31] LABS: ALANINE AMINOTRANSFERASE 82 U/L (12-78); ANION GAP 3 mmol/L (5-15); BILIRUBIN, DIRECT 0.4 mg/dL (0.1-0.2); CALCIUM 7.3 mg/dL (8.5-10.1); CHLORIDE 115 mmol/L (98-107)
[2020-03-05 03:32] LABS: MD NO
[2020-03-05 03:34] LABS: ALKALINE PHOSPHATASE 149 U/L (45-117); BILIRUBIN,INDIRECT 0.5 mg/dL (0.0-2.0); BILIRUBIN,TOTAL 0.9 mg/dL (0.2-1.0); CREATINE KINASE, TOTAL 482 U/L (26-192); CREATININE 1.18 mg/dL (0.55-1.02); TOTAL PROTEIN 5.2 g/dL (6.4-8.2); TROPONIN I 0.586 ng/mL (0.000-0.045)
[2020-03-05] MEDS: DEXTROSE 5% 1,000 ML IV SCH ×2 (03:50→10:00)
[2020-03-05] MEDS ORDERED: FUROSEMIDE 20 MG/2 ML IV ONE ×4 (04:00→15:00)
[2020-03-05] MEDS: LABETALOL 5MG/ML, 20ML IVPush PRN ×5 (04:43→19:59)
[2020-03-05 05:00] VITALS: BP 138/98
[2020-03-05] MEDS: LEVOTHYROXINE 200 MCG in SODIUM CHLORIDE 0.9% 500 ML IV SCH (08:00)
[2020-03-05 09:58] LABS: FIO2 100 %
[2020-03-05 10:00] LABS: MEAN CORPUSCULAR HEMOGLOBIN 30.7 pg (27.0-34.8); MEAN CORPUSCULAR HGB CONC 33.3 g/dL (32.4-35.8); MEAN PLATELET VOLUME 8.4 fL (7.4-10.4); PLATELET COUNT 118 x10^3/uL (130-400); RED BLOOD COUNT 3.77 x10^6/uL (3.82-5.3)
[2020-03-05 10:07] LABS: INTERNATIONAL NORMALIZED RATIO 1.14 (0.93-1.1); PROTHROMBIN TIME 12.1 Seconds (9.6-11.5)
[2020-03-05 10:09] LABS: ALANINE AMINOTRANSFERASE 72 U/L (12-78); ANION GAP 5 mmol/L (5-15); BILIRUBIN, DIRECT 0.3 mg/dL (0.1-0.2); CALCIUM 7.3 mg/dL (8.5-10.1); CHLORIDE 114 mmol/L (98-107); CREATININE 1.43 mg/dL (0.55-1.02)
[2020-03-05 10:12] LABS: ALKALINE PHOSPHATASE 145 U/L (45-117); BILIRUBIN,INDIRECT 0.4 mg/dL (0.0-2.0); BILIRUBIN,TOTAL 0.7 mg/dL (0.2-1.0); CREATINE KINASE, TOTAL 405 U/L (26-192); TOTAL PROTEIN 4.9 g/dL (6.4-8.2); TROPONIN I 0.443 ng/mL (0.000-0.045)
[2020-03-05 10:15] LABS: MD YES
[2020-03-05 10:17] LABS: BAND#(MANUAL) 0.96 x10^3/uL; BANDS%(MANUAL) 11 % (0-7); LYMPH#(MANUAL) 0.78 x10^3/uL (1-3.4); LYMPHS% (MANUAL) 9 % (22-44); MONOS#(MANUAL) 0.17 x10^3/uL (0.3-2.7); MONOS% (MANUAL) 2 % (2-9); SEG#(MANUAL) 6.79 x10^3/uL (1.8-6.8); SEGS% (MANUAL) 78 % (42-75)
[2020-03-05 10:18] LABS: <PLATELET ESTIMATE> DECREASED; <PLT MORPHOLOGY> NORMAL PLT MORPH; <RBC MORPHOLOGY> NORMAL
[2020-03-05] MEDS: POTASSIUM CHLORIDE PMX 20MEQ/100 ML IVPB PRN (11:42)
[2020-03-05] MEDS: REGULAR INSULIN 100 UNITS in SODIUM CHLORIDE 0.9% 99 ML IV SCH (11:42)
[2020-03-05] MEDS: MAGNESIUM SULFATE PMX 2GM/50ML 50 ML IVPB PRN (11:42)
[2020-03-05 11:53] LABS: MICROSCOPIC INDICATED
[2020-03-05] MEDS ORDERED: FLUCONAZOLE 200 MG/100 ML 100 ML IV ONE (13:00)
[2020-03-05] MEDS ORDERED: DEXTROSE 5% 1,000 ML IV SCH ×2 (15:30)
[2020-03-05 15:37] LABS: MEAN CORPUSCULAR HEMOGLOBIN 30.1 pg (27.0-34.8); MEAN PLATELET VOLUME 8.6 fL (7.4-10.4); PLATELET COUNT 120 x10^3/uL (130-400); RED CELL DISTRIBUTION WIDTH 14.7 % (9.6-15.2)
[2020-03-05 15:48] LABS: INTERNATIONAL NORMALIZED RATIO 1.16 (0.93-1.1); PROTHROMBIN TIME 12.3 Seconds (9.6-11.5)
[2020-03-05 15:53] LABS: ALANINE AMINOTRANSFERASE 76 U/L (12-78); ANION GAP 4 mmol/L (5-15); CALCIUM 7.5 mg/dL (8.5-10.1); CHLORIDE 112 mmol/L (98-107)
[2020-03-05 15:56] LABS: ALKALINE PHOSPHATASE 155 U/L (45-117); BILIRUBIN,TOTAL 0.9 mg/dL (0.2-1.0); CREATINE KINASE, TOTAL 423 U/L (26-192); CREATININE 1.53 mg/dL (0.55-1.02); TOTAL PROTEIN 5.2 g/dL (6.4-8.2); TROPONIN I 0.459 ng/mL (0.000-0.045)
[2020-03-05 15:58] LABS: BILIRUBIN, DIRECT 0.4 mg/dL (0.1-0.2); BILIRUBIN,INDIRECT 0.5 mg/dL (0.0-2.0)
[2020-03-05] MEDS: PANTOPRAZOLE 40 MG IV IV SCH (16:00)
[2020-03-05 16:40] LABS: MD YES
[2020-03-05 16:43] LABS: <RBC MORPHOLOGY> NORMAL; BAND#(MANUAL) 2.06 x10^3/uL; BANDS%(MANUAL) 20 % (0-7); LYMPH#(MANUAL) 0.52 x10^3/uL (1-3.4); LYMPHS% (MANUAL) 5 % (22-44); MONOS#(MANUAL) 0.62 x10^3/uL (0.3-2.7); MONOS% (MANUAL) 6 % (2-9); SEG#(MANUAL) 7.11 x10^3/uL (1.8-6.8); SEGS% (MANUAL) 69 % (42-75)
[2020-03-05 16:44] LABS: <PLATELET ESTIMATE> DECREASED; <PLT MORPHOLOGY> NORMAL PLT MORPH; TOXIC GRAN 1+
[2020-03-05] MEDS: METHYLPREDNISOLONE SOD SUCC IV SCH (17:07)
[2020-03-05] MEDS: DEXTROSE 5% IV SCH (17:07)
[2020-03-05] MEDS ORDERED: FUROSEMIDE 40 MG/4 ML ONE (17:46)
[2020-03-05] MEDS ORDERED: FUROSEMIDE 40 MG/4 ML IV ONE ×2 (18:00→19:00)
[2020-03-05] MEDS ORDERED: AcetaZOLAMIDE INJ 500 MG ONE (21:18)
[2020-03-05 21:26] LABS: MEAN CORPUSCULAR HEMOGLOBIN 30.3 pg (27.0-34.8); MEAN CORPUSCULAR HGB CONC 33.1 g/dL (32.4-35.8); MEAN PLATELET VOLUME 9.1 fL (7.4-10.4); PLATELET COUNT 143 x10^3/uL (130-400); RED BLOOD COUNT 3.82 x10^6/uL (3.82-5.3); RED CELL DISTRIBUTION WIDTH 14.8 % (9.6-15.2)
[2020-03-05] MEDS ORDERED: HEPARIN 1,000 UNITS/ML, 10ML ONE (21:26)
[2020-03-05 21:30] LABS: ALANINE AMINOTRANSFERASE 72 U/L (12-78); ANION GAP 6 mmol/L (5-15); BILIRUBIN, DIRECT 0.6 mg/dL (0.1-0.2); CALCIUM 7.6 mg/dL (8.5-10.1); CHLORIDE 108 mmol/L (98-107)
[2020-03-05] MEDS ORDERED: AcetaZOLAMIDE INJ 500 MG IVPush ONE (21:30)
[2020-03-05 21:33] LABS: ALKALINE PHOSPHATASE 162 U/L (45-117); BILIRUBIN,INDIRECT 0.7 mg/dL (0.0-2.0); BILIRUBIN,TOTAL 1.3 mg/dL (0.2-1.0); CREATINE KINASE, TOTAL 399 U/L (26-192); CREATININE 1.98 mg/dL (0.55-1.02); TOTAL PROTEIN 5.3 g/dL (6.4-8.2); TROPONIN I 0.633 ng/mL (0.000-0.045)
[2020-03-05 21:34] LABS: INTERNATIONAL NORMALIZED RATIO 1.23 (0.93-1.1)
[2020-03-05 22:20] LABS: MD YES
[2020-03-05 22:28] LABS: <PLATELET ESTIMATE> DECREASED; <PLT MORPHOLOGY> NORMAL PLT MORPH; <RBC MORPHOLOGY> NORMAL; BAND#(MANUAL) 1.33 x10^3/uL; BANDS%(MANUAL) 13 % (0-7); LYMPH#(MANUAL) 0.61 x10^3/uL (1-3.4); LYMPHS% (MANUAL) 6 % (22-44); MONOS#(MANUAL) 0.71 x10^3/uL (0.3-2.7); MONOS% (MANUAL) 7 % (2-9); SEG#(MANUAL) 7.55 x10^3/uL (1.8-6.8); SEGS% (MANUAL) 74 % (42-75)
[2020-03-06 01:04] LABS: INTERNATIONAL NORMALIZED RATIO 1.39 (0.93-1.1); PROTHROMBIN TIME 14.7 Seconds (9.6-11.5)
[2020-03-06 01:05] LABS: ALANINE AMINOTRANSFERASE 68 U/L (12-78); ANION GAP 7 mmol/L (5-15); BILIRUBIN, DIRECT 0.6 mg/dL (0.1-0.2); CALCIUM 7.6 mg/dL (8.5-10.1); CHLORIDE 109 mmol/L (98-107); CREATININE 2.47 mg/dL (0.55-1.02)
[2020-03-06 01:08] LABS: ALKALINE PHOSPHATASE 164 U/L (45-117); BILIRUBIN,INDIRECT 0.7 mg/dL (0.0-2.0); BILIRUBIN,TOTAL 1.3 mg/dL (0.2-1.0); CREATINE KINASE, TOTAL 371 U/L (26-192); TOTAL PROTEIN 5.3 g/dL (6.4-8.2); TROPONIN I 0.746 ng/mL (0.000-0.045)
[2020-03-06 01:35] LABS: MD YES
[2020-03-06 01:39] LABS: <PLATELET ESTIMATE> DECREASED; <PLT MORPHOLOGY> NORMAL PLT MORPH; <RBC MORPHOLOGY> NORMAL; BAND#(MANUAL) 0.82 x10^3/uL; BANDS%(MANUAL) 9 % (0-7); LYMPH#(MANUAL) 0.46 x10^3/uL (1-3.4); LYMPHS% (MANUAL) 5 % (22-44); MONOS#(MANUAL) 0.64 x10^3/uL (0.3-2.7); MONOS% (MANUAL) 7 % (2-9); SEG#(MANUAL) 7.19 x10^3/uL (1.8-6.8); SEGS% (MANUAL) 79 % (42-75)
[2020-03-06] MEDS: ARTIFICIAL TEARS 15 DROP/ML BOTTLE EACHEYE SCH ×2 (01:47→01:48)
[2020-03-06] MEDS: PIPERACILLIN/TAZO/PMX 3.375GM 50 ML IV SCH (01:48)
[2020-03-06 01:59] LABS: MEAN CORPUSCULAR HEMOGLOBIN 30.3 pg (27.0-34.8); MEAN CORPUSCULAR HGB CONC 32.7 g/dL (32.4-35.8); MEAN PLATELET VOLUME 9.3 fL (7.4-10.4); PLATELET COUNT 130 x10^3/uL (130-400); RED BLOOD COUNT 3.64 x10^6/uL (3.82-5.3); RED CELL DISTRIBUTION WIDTH 14.6 % (9.6-15.2)
[2020-03-06] MEDS: ALBUTEROL SULFATE 2.5MG/0.5ML NEB SCH (02:00)
[2020-03-06 09:26] LABS: MICROSCOPIC INDICATED
== END 2020-03-06 09:45 | disposition expired | DRG 287 ==
LOC: CCU 11:39
PROC: 0FB13ZX Excision of Right Lobe Liver, Percutaneous Approach, Diagnostic (ICD-10-PCS; principal; 2020-03-04)
PROC: 4A023N8 Measurement of Cardiac Sampling and Pressure, Bilateral, Percutaneous Approach (ICD-10-PCS; 2020-03-04)
PROC: B2111ZZ Fluoroscopy of Multiple Coronary Arteries using Low Osmolar Contrast (ICD-10-PCS; 2020-03-04)
PROC: B2151ZZ Fluoroscopy of Left Heart using Low Osmolar Contrast (ICD-10-PCS; 2020-03-04)
PROC: 5A1945Z Respiratory Ventilation, 24-96 Consecutive Hours (ICD-10-PCS; 2020-03-04)
PROC: 0BH17EZ Insertion of Endotracheal Airway into Trachea, Via Natural or Artificial Opening (ICD-10-PCS; 2020-03-04)
DX: I27.20 Pulmonary hypertension, unspecified (principal); Z88.8 Allergy status to other drugs, medicaments and biological substances
CPT/HCPCS: 36600; J3490; 31622; 47000; 71045; 71260; 74177; 76942; 80048; 81001; 82040; 82150; 82247; 82248; 82330; 82550; 82803; 82962; 83036; 83605; 83690; 83735; 84075; 84100; 84155; 84450; 84460; 84484; 85025; 85610; 85730; 86850; 86900; 87070; 87086; 87107; 87205; 93005; 93306; 94003; 94640; G0378; J1644; J1815; J1940; J2543; J2930; J3480; J7070; Q9967; C9113; J1120; J1450; J2370; J3475; J7040; J7050